=== PATIENT | male | born 1990 | race Caucasian/White ===

== ENCOUNTER 2017-04-02 18:09 | Emergency (ER) | payer OTHER ==
[~2017-04-02] VITALS: Ht 185.4 cm; Wt 104.8 kg
[2017-04-02 19:53] VITALS: BP 136/88
== END 2017-04-02 19:53 | disposition home or self-care (01) ==
LOC: ED 18:09
DX: L60.0 Ingrowing nail (principal)
CPT/HCPCS: J3490

== ENCOUNTER 2017-11-15 23:13 | Emergency (ER) | payer OTHER ==
[~2017-11-15] VITALS: Ht 188 cm; Wt 108.9 kg
[2017-11-16 04:40] VITALS: BP 137/97
== END 2017-11-16 04:40 | disposition home or self-care (01) ==
LOC: ED 23:13
DX: B34.9 Viral infection, unspecified (principal); H10.9 Unspecified conjunctivitis

== ENCOUNTER 2017-12-23 19:55 | Emergency (ER) | payer OTHER ==
[~2017-12-23] VITALS: Ht 188 cm; Wt 105.7 kg
[2017-12-23 20:25] VITALS: Ht 188 cm; Wt 105.7 kg
[2017-12-23 20:39] VITALS: BP 151/86
== END 2017-12-23 21:08 | disposition home or self-care (01) ==
LOC: ED 19:55
DX: M54.32 Sciatica, left side (principal); I10 Essential (primary) hypertension; V49.09XA Driver injured in collision with other motor vehicles in nontraffic accident, initial encounter; Y93.89 Activity, other specified; Y99.8 Other external cause status; Y92.89 Other specified places as the place of occurrence of the external cause